=== PATIENT | male | born 1950 | race Caucasian/White ===

== ENCOUNTER 2023-12-24 17:13 | Emergency (ER) | payer OTHER ==
[~2023-12-24] VITALS: Ht 165.1 cm; Wt 44.9 kg
[~2023-12-24 17:13] MED LIST: ALDACTONE25 MG PO; AMIODARONE HYD200 MG PO; CARVEDILOL25 MG PO; CARVEDILOL6.25 MG PO; ELIQUIS2.5 M1 PO; ELIQUIS5 M1 PO; FUROSEMIDE40 MG PO; GLIPIZIDE2.5 MG PO; GLUCOTROL10 MG PO; KLOR-CON M2020 ME1 PO; LASIX40 MG PO; LEXAPRO5 M1 PO; LISINOPRIL5 MG PO; LOVASTATIN40 MG PO; PHARMASSURE V500 MCG PO; PRINIVIL20 M1 PO; VIBRAMYCIN HYC100 MG PO; VITAMIN D350 MCG PO
[2023-12-24 20:36] LABS: BASO % 0.1 % (0.0-1.0); LYMPH # 0.4 10*3/uL (1.3-4.4); LYMPH % 3.6 % (27.0-41.0); MEAN CELL VOLUME 84.5 fl (80.0-94.0); MEAN CORPUSCULAR HGB 26.9 pg (27.0-31.0); MEAN CORPUSCULAR HGB CONC 31.9 g/dl (33.0-37.0); MEAN PLATELET VOLUME 11.4 fl (9.6-12.3); MONO # 0.8 10*3/uL (0.1-1.0); MONO % 7.7 % (3.0-9.0); NEUT # 8.6 10*3/uL (2.3-7.9); NEUT % 88.3 % (47.0-73.0); PLATELET COUNT AUTOMATED 196 10*3/uL (130-400); RED BLOOD COUNT 4.38 10*6/uL (4.50-5.90); RED CELL DISTRI WIDTH 15.1 % (0-14.5); WHITE BLOOD COUNT 9.7 10*3/uL (4.8-10.8)
[2023-12-24 21:01] LABS: ACT PARTIAL THROMBO TIME 29.9 SECONDS (20.0-32.1); ALKALINE PHOSPHATASE 98 U/L (46-116); BUN 21 mg/dl (9-23); CHLORIDE 103 mmol/L (98-107); LIPASE 36 U/L (12-53); POTASSIUM 3.7 mmol/L (3.4-5.1); SGPT/ALT 140 U/L (5-49); TOTAL PROTEIN 6.9 gm/dL (6.0-8.0)
== END 2023-12-25 00:40 | disposition short-term general hospital (02) ==
LOC: ED 17:13
PROVIDERS: Internal Medicine
DX: B02.30 Zoster ocular disease, unspecified (principal); I11.0 Hypertensive heart disease with heart failure; I50.9 Heart failure, unspecified; E78.00 Pure hypercholesterolemia, unspecified; I48.91 Unspecified atrial fibrillation; Z98.890 Other specified postprocedural states

== ENCOUNTER 2025-08-01 19:33 | Inpatient (IN) | payer OTHER ==
[~2025-08-01] VITALS: Ht 172.7 cm; Wt 60.3 kg
[2025-08-01 19:40] VITALS: BP 121/84
[2025-08-01] MEDS ORDERED: SODIUM CHLORIDE 0.9% 1,000 ML IV ONE ×2 (19:50→22:55)
[2025-08-01 20:13] VITALS: BP 120/91
[2025-08-01 20:18] LABS: BASO # 0.0 10*3/uL (0.0-0.1); BASO % 0.4 % (0.0-1.0); EOS # 0.1 10*3/uL (0.0-0.4); EOS % 1.6 % (1.0-4.0); MEAN CELL VOLUME 86.5 fl (80.0-94.0); MEAN CORPUSCULAR HGB 27.9 pg (27.0-31.0); MEAN PLATELET VOLUME 12.8 fl (9.6-12.3); MONO # 0.9 10*3/uL (0.1-1.0); MONO % 9.8 % (3.0-9.0); NEUT # 7.1 10*3/uL (2.3-7.9); NEUT % 78.2 % (47.0-73.0); NUCLEATED RED BLOOD CELL 0.0 10*3/uL (0.0-0.0); NUCLEATED RED BLOOD CELL 0.2 % (0.0-0.0); PLATELET COUNT AUTOMATED 187 10*3/uL (130-400); RED CELL DISTRI WIDTH 15.9 % (0-14.5)
[2025-08-01 20:40] VITALS: BP 112/90
[2025-08-01 20:45] LABS: BUN 31.0 mg/dl (9-23); SGPT/ALT 10.0 U/L (5-49)
[2025-08-01 21:21] VITALS: BP 117/88
[2025-08-01 22:30] VITALS: BP 111/79
[2025-08-01] MEDS ORDERED: AZITHROMYCIN 250 ML IV ONE (22:55)
[2025-08-01 23:16] VITALS: BP 116/86
[2025-08-02] VITALS (41 sets, daily range): BP systolic 95–150; BP diastolic 53–96
[2025-08-02] MEDS ORDERED: SODIUM CHLORIDE 0.9% 1,000 ML IV ONE ×2 (00:30→03:00)
[2025-08-02] MEDS ORDERED: NOREPINEPHRINE BITARTRATE/D5W 250 ML IV ONE ×2 (01:00→03:13)
[2025-08-02 01:41] LABS: BILIRUBIN Negative (Negative); BLOOD Negative (Negative); CLARITY Clear (Clear); COLOR Yellow (Yellow); KETONE Trace (Negative); LEUKO ESTERASE Negative (Negative); NITRITE Negative (Negative); PH 5.5 (4.5-8.0); SPECIFIC GRAVITY 1.020 (1.001-1.030); UROBILINOGEN 1.0 E.U./dl (0.0-1.0)
[2025-08-02 01:59] LABS: RBC 0-2 rbc/hpf (0-2); WBC 0-2 wbc/hpf (0-5)
[2025-08-02] MEDS ORDERED: RAMIPRIL1.25 MG PO (03:01)
[2025-08-02] MEDS ORDERED: ATORVASTATIN CA40 M1 PO (03:02)
[2025-08-02] MEDS ORDERED: NOREPINEPHRINE BITARTRATE/D5W 250 ML IV SCH ×2 (03:05→05:50)
[2025-08-02] MEDS ORDERED: ACETAMINOPHEN 325 MG TAB PO PRN (05:45)
[2025-08-02] MEDS ORDERED: ACETAMINOPHEN 650 MG SUPP R PRN (05:45)
[2025-08-02] MEDS ORDERED: Vancomycin Hydrochloride 1,250 MG in SODIUM CHLORIDE 0.9% 250 ML IV ONE (06:10)
[2025-08-02 06:31] LABS: BASO # 0.0 10*3/uL (0.0-0.1); BASO % 0.2 % (0.0-1.0); EOS # 0.0 10*3/uL (0.0-0.4); EOS % 0.1 % (1.0-4.0); MEAN CELL VOLUME 88.2 fl (80.0-94.0); MEAN CORPUSCULAR HGB 28.0 pg (27.0-31.0); MEAN PLATELET VOLUME 11.9 fl (9.6-12.3); MONO # 1.5 10*3/uL (0.1-1.0); MONO % 8.4 % (3.0-9.0); NEUT # 15.4 10*3/uL (2.3-7.9); NEUT % 86.4 % (47.0-73.0); NUCLEATED RED BLOOD CELL 0.0 10*3/uL (0.0-0.0); NUCLEATED RED BLOOD CELL 0.2 % (0.0-0.0); PLATELET COUNT AUTOMATED 177 10*3/uL (130-400); RED CELL DISTRI WIDTH 15.9 % (0-14.5)
[2025-08-02] MEDS ORDERED: FUROSEMIDE 40 MG/4 ML VIAL IV ONE (07:10)
[2025-08-02 07:17] LABS: BUN 31.0 mg/dl (9-23); LDL CHOLESTEROL 123.0 mg/dL (9-159); SGPT/ALT 313.0 U/L (5-49)
[2025-08-02 08:01] LABS: ARTERIAL BLOOD GAS PH 7.351 (7.350-7.450); ARTERIAL BLOOD GAS PO2 227.2 mmHg (83.0-108.0)
[2025-08-02 08:02] LABS: ABG BASE EXCESS -8.5 mmol/L (-2.0-3.0); ABG O2 SATURATION 99.1 % (94.0-98.0)
[2025-08-02] MEDS ORDERED: FUROSEMIDE 40 MG/4 ML VIAL IV SCH (08:35)
[2025-08-02] MEDS ORDERED: Dexamethasone Sodium Phospha 4 MG/ML VIAL IV SCH (10:00)
[2025-08-02] MEDS ORDERED: APIXABAN 5 MG TAB PO SCH (10:00)
[2025-08-02] MEDS ORDERED: SODIUM CHLORIDE 0.9% 100 ML BAG IV ONE (10:40)
[2025-08-02] MEDS ORDERED: IOHEXOL 350 MG/ML 100 ML VIAL IV ONE (10:40)
[2025-08-02] MEDS ORDERED: Amiodarone Hydrochloride 200 MG TAB PO SCH (18:00)
[2025-08-02] MEDS ORDERED: HEEL PROTECTOR DEVICE ONE (18:00)
[2025-08-02] MEDS ORDERED: ETOMIDATE 20 MG/10 ML VIAL IV ONE (20:32)
[2025-08-02] MEDS ORDERED: ATORVASTATIN CALCIUM 40 MG TABLET PO SCH (22:00)
[2025-08-03] VITALS (8 sets, daily range): BP systolic 83–109; BP diastolic 59–77
[2025-08-03 05:30] LABS: BUN 34.0 mg/dl (9-23); FREE T4 1.38 ng/dl (0.89-1.76); SGPT/ALT 263.0 U/L (5-49)
[2025-08-03 06:16] LABS: MEAN CELL VOLUME 87.0 fl (80.0-94.0); MEAN CORPUSCULAR HGB 27.7 pg (27.0-31.0); MEAN PLATELET VOLUME 13.6 fl (9.6-12.3); NUCLEATED RED BLOOD CELL 0.0 % (0.0-0.0); NUCLEATED RED BLOOD CELL 0.0 10*3/uL (0.0-0.0); PLATELET COUNT AUTOMATED 154 10*3/uL (130-400); RED CELL DISTRI WIDTH 16.2 % (0-14.5)
[2025-08-03 06:34] LABS: ACT PARTIAL THROMBO TIME 27.5 SECONDS (20.0-32.1)
[2025-08-03 06:58] LABS: MANUAL DIFF REFLEX YES
[2025-08-03 07:02] LABS: PLATELET SUFFICIENCY NORMAL (NORMAL)
[2025-08-03 07:37] LABS: ABG O2 SATURATION 99.6 % (94.0-98.0); ARTERIAL BLOOD GAS PH 7.401 (7.350-7.450); ARTERIAL BLOOD GAS PO2 176.8 mmHg (83.0-108.0)
[2025-08-03 07:38] LABS: ABG BASE EXCESS -5.6 mmol/L (-2.0-3.0)
[2025-08-03] MEDS ORDERED: SODIUM BICARBONATE 4.2% 5 ML VIAL ONE (08:57)
[2025-08-03] MEDS ORDERED: Lidocaine Hydrochloride 2% 5 ML SDV ONE (08:57)
[2025-08-03] MEDS ORDERED: IOHEXOL 240 MG/ML 20 ML SOL ONE ×2 (08:58→10:32)
[2025-08-03] MEDS ORDERED: IOHEXOL 240 MG/ML 10 ML SOL ONE (09:56)
[2025-08-03] MEDS ORDERED: Cholecalciferol 2,000 UNIT TABLET (50 MCG) PO SCH (10:00)
[2025-08-03] MEDS ORDERED: CYANOCOBALAMIN 500 MCG TAB PO SCH (10:00)
[2025-08-03] MEDS ORDERED: ESCITALOPRAM OXALATE 10 MG TAB PO SCH (10:00)
[2025-08-03] MEDS ORDERED: REMDESIVIR 200 MG in SODIUM CHLORIDE 0.9% 210 ML IV ONE (11:00)
[2025-08-04] VITALS: BP 90/64
[2025-08-04 04:00] VITALS: BP 105/77
[2025-08-04 05:37] LABS: SGPT/ALT 174.0 U/L (5-49)
[2025-08-04 05:44] LABS: BUN 44.0 mg/dl (9-23)
[2025-08-04 05:59] LABS: MEAN CELL VOLUME 85.6 fl (80.0-94.0); MEAN CORPUSCULAR HGB 27.7 pg (27.0-31.0); MEAN PLATELET VOLUME 13.8 fl (9.6-12.3); NUCLEATED RED BLOOD CELL 0.0 % (0.0-0.0); NUCLEATED RED BLOOD CELL 0.0 10*3/uL (0.0-0.0); PLATELET COUNT AUTOMATED 156 10*3/uL (130-400); RED CELL DISTRI WIDTH 16.3 % (0-14.5)
[2025-08-04 06:30] LABS: MANUAL DIFF REFLEX YES
[2025-08-04 06:35] LABS: PLATELET SUFFICIENCY NORMAL (NORMAL)
[2025-08-04] MEDS ORDERED: POTASSIUM CHLORIDE 20 MEQ TAB PO ONE (07:20)
[2025-08-04 08:00] VITALS: BP 109/85
[2025-08-04] MEDS ORDERED: REMDESIVIR 100 MG in SODIUM CHLORIDE 0.9% 230 ML IV SCH (11:00)
[2025-08-04 12:00] VITALS: BP 110/74
[2025-08-04 16:00] VITALS: BP 109/80
[2025-08-04 20:00] VITALS: BP 116/82
[2025-08-05] VITALS: BP 124/82
[2025-08-05 04:00] VITALS: BP 123/93
[2025-08-05 05:27] LABS: BUN 37.0 mg/dl (9-23); SGPT/ALT 127.0 U/L (5-49)
[2025-08-05 06:04] LABS: MEAN CELL VOLUME 86.1 fl (80.0-94.0); MEAN CORPUSCULAR HGB 27.5 pg (27.0-31.0); MEAN PLATELET VOLUME 13.2 fl (9.6-12.3); NUCLEATED RED BLOOD CELL 0.0 % (0.0-0.0); NUCLEATED RED BLOOD CELL 0.0 10*3/uL (0.0-0.0); PLATELET COUNT AUTOMATED 164 10*3/uL (130-400); RED CELL DISTRI WIDTH 16.5 % (0-14.5)
[2025-08-05 07:18] LABS: MANUAL DIFF REFLEX YES
[2025-08-05 07:21] LABS: PLATELET SUFFICIENCY NORMAL (NORMAL)
[2025-08-05 08:00] VITALS: BP 121/90
[2025-08-05] MEDS ORDERED: MAGNESIUM SULFATE 50 ML IV ONE (09:20)
[2025-08-05] MEDS ORDERED: POTASSIUM CHLORIDE 20 MEQ TAB PO SCH (10:00)
[2025-08-05] MEDS ORDERED: METOPROLOL SUCCINATE XR 25 MG TAB PO SCH (10:00)
[2025-08-05 12:01] VITALS: BP 107/79
[2025-08-05 16:02] VITALS: BP 102/81
[2025-08-05] MEDS ORDERED: FUROSEMIDE 40 MG/4 ML VIAL IV SCH (18:00)
[2025-08-05] MEDS ORDERED: acetaZOLAMIDE 250 MG TAB PO SCH (18:00)
[2025-08-05 20:00] VITALS: BP 107/77
[2025-08-05] MEDS ORDERED: TEMAZEPAM 15 MG CAP PO PRN (22:00)
[2025-08-06] VITALS: BP 101/72
[2025-08-06 04:00] VITALS: BP 107/63
[2025-08-06 05:30] LABS: BUN 31.0 mg/dl (9-23)
[2025-08-06 06:04] LABS: MEAN CELL VOLUME 87.0 fl (80.0-94.0); MEAN CORPUSCULAR HGB 26.9 pg (27.0-31.0); MEAN PLATELET VOLUME 13.2 fl (9.6-12.3); NUCLEATED RED BLOOD CELL 0.0 10*3/uL (0.0-0.0); NUCLEATED RED BLOOD CELL 0.1 % (0.0-0.0); PLATELET COUNT AUTOMATED 182 10*3/uL (130-400); RED CELL DISTRI WIDTH 16.7 % (0-14.5)
[2025-08-06 06:54] LABS: MANUAL DIFF REFLEX YES
[2025-08-06 06:58] LABS: PLATELET SUFFICIENCY NORMAL (NORMAL)
[2025-08-06 08:00] VITALS: BP 105/76
[2025-08-06 14:49] VITALS: BP 105/74
[2025-08-06] MEDS ORDERED: FUROSEMIDE 40 MG/4 ML VIAL IV SCH (18:00)
[2025-08-06 20:00] VITALS: BP 110/90
[2025-08-07] VITALS (7 sets, daily range): BP systolic 90–120; BP diastolic 54–82
[2025-08-07 06:36] LABS: MEAN CELL VOLUME 87.2 fl (80.0-94.0); MEAN CORPUSCULAR HGB 27.3 pg (27.0-31.0); MEAN PLATELET VOLUME 13.2 fl (9.6-12.3); NUCLEATED RED BLOOD CELL 0.0 10*3/uL (0.0-0.0); NUCLEATED RED BLOOD CELL 0.3 % (0.0-0.0); PLATELET COUNT AUTOMATED 177 10*3/uL (130-400); RED CELL DISTRI WIDTH 16.7 % (0-14.5)
[2025-08-07 07:21] LABS: BUN 39.0 mg/dl (9-23); SGPT/ALT 74.0 U/L (5-49)
[2025-08-07 07:34] LABS: MANUAL DIFF REFLEX YES
[2025-08-07 07:36] LABS: PLATELET SUFFICIENCY NORMAL (NORMAL)
[2025-08-07] MEDS ORDERED: FUROSEMIDE 40 MG/4 ML VIAL IV SCH (10:00)
[2025-08-07] MEDS ORDERED: DIGOXIN 500 MCG/2 ML AMP IV ONE (23:55)
[2025-08-08] VITALS (9 sets, daily range): BP systolic 96–140; BP diastolic 44–96
[2025-08-08 00:15] LABS: BUN 49.0 mg/dl (9-23)
[2025-08-08 06:41] LABS: MEAN CELL VOLUME 85.7 fl (80.0-94.0); MEAN CORPUSCULAR HGB 27.2 pg (27.0-31.0); MEAN PLATELET VOLUME 13.6 fl (9.6-12.3); NUCLEATED RED BLOOD CELL 0.0 10*3/uL (0.0-0.0); NUCLEATED RED BLOOD CELL 0.2 % (0.0-0.0); PLATELET COUNT AUTOMATED 174 10*3/uL (130-400); RED CELL DISTRI WIDTH 16.7 % (0-14.5)
[2025-08-08 06:44] LABS: MANUAL DIFF REFLEX YES
[2025-08-08 06:53] LABS: BUN 51.0 mg/dl (9-23)
[2025-08-08 07:12] LABS: PLATELET SUFFICIENCY NORMAL (NORMAL)
[2025-08-08] MEDS ORDERED: CALCIUM ACETATE 667 MG CAP PO SCH (08:00)
[2025-08-09] VITALS: BP 130/60
[2025-08-09 06:33] LABS: MEAN CELL VOLUME 88.3 fl (80.0-94.0); MEAN CORPUSCULAR HGB 27.9 pg (27.0-31.0); MEAN PLATELET VOLUME 13.7 fl (9.6-12.3); NUCLEATED RED BLOOD CELL 0.0 10*3/uL (0.0-0.0); NUCLEATED RED BLOOD CELL 0.1 % (0.0-0.0); PLATELET COUNT AUTOMATED 169 10*3/uL (130-400); RED CELL DISTRI WIDTH 16.5 % (0-14.5)
[2025-08-09 06:40] LABS: MANUAL DIFF REFLEX YES
[2025-08-09 07:04] LABS: PLATELET SUFFICIENCY NORMAL (NORMAL); VACUOLATION OF NEUTROPHILS SLIGHT
[2025-08-09 08:00] VITALS: BP 138/79
[2025-08-09 08:12] LABS: BUN 49.0 mg/dl (9-23); SGPT/ALT 48.0 U/L (5-49)
[2025-08-09] MEDS ORDERED: acetaZOLAMIDE 250 MG TAB PO SCH ×2 (10:00→18:00)
[2025-08-09] MEDS ORDERED: METOPROLOL SUCCINATE XR 50 MG TAB PO SCH (10:00)
[2025-08-09 11:58] VITALS: BP 124/74
[2025-08-09 16:00] VITALS: BP 115/86
[2025-08-09] MEDS ORDERED: FUROSEMIDE 40 MG/4 ML VIAL IV SCH (18:00)
[2025-08-09 20:00] VITALS: BP 136/80
[2025-08-10] VITALS: BP 130/60
[2025-08-10 06:34] LABS: MEAN CELL VOLUME 85.9 fl (80.0-94.0); MEAN CORPUSCULAR HGB 27.0 pg (27.0-31.0); MEAN PLATELET VOLUME 13.7 fl (9.6-12.3); NUCLEATED RED BLOOD CELL 0.0 10*3/uL (0.0-0.0); NUCLEATED RED BLOOD CELL 0.1 % (0.0-0.0); PLATELET COUNT AUTOMATED 175 10*3/uL (130-400); RED CELL DISTRI WIDTH 16.4 % (0-14.5)
[2025-08-10 07:02] LABS: BUN 43.0 mg/dl (9-23); SGPT/ALT 42.0 U/L (5-49)
[2025-08-10 08:00] VITALS: BP 133/85
[2025-08-10 09:18] LABS: MANUAL DIFF REFLEX YES
[2025-08-10 09:20] LABS: PLATELET SUFFICIENCY NORMAL (NORMAL)
[2025-08-10] MEDS ORDERED: METOPROLOL SUCCINATE XR 25 MG TAB PO SCH (10:00)
[2025-08-10 12:00] VITALS: BP 121/61
[2025-08-10] MEDS ORDERED: Menthol/Zinc Oxide 4 GM THIN T PRN (14:10)
[2025-08-10 16:00] VITALS: BP 140/84
[2025-08-10 22:00] VITALS: BP 129/73
[2025-08-10] MEDS ORDERED: Menthol/Zinc Oxide 4 GM THIN T SCH (22:00)
[2025-08-11] VITALS: BP 140/60
[2025-08-11 08:00] VITALS: BP 123/85
[2025-08-11 12:00] VITALS: BP 122/75
[2025-08-11 15:45] VITALS: BP 106/66
[2025-08-11 20:00] VITALS: BP 139/86
[2025-08-12] VITALS: BP 130/88
[2025-08-12 08:00] VITALS: BP 135/80
[2025-08-12] MEDS ORDERED: APIXABAN 2.5 MG TABLET PO SCH (10:00)
[2025-08-12 12:00] VITALS: BP 114/71
[2025-08-12 16:00] VITALS: BP 117/80
[2025-08-12 20:00] VITALS: BP 127/75
[2025-08-12] MEDS ORDERED: Menthol/Zinc Oxide 113 GM THIN T SCH (22:00)
[2025-08-13] VITALS: BP 130/75
[2025-08-13 07:40] LABS: BUN 35.0 mg/dl (9-23)
[2025-08-13 08:00] VITALS: BP 138/74
[2025-08-13 12:00] VITALS: BP 123/91
[2025-08-13 15:57] VITALS: BP 116/71
[2025-08-13 20:00] VITALS: BP 125/82
[2025-08-14] VITALS: BP 107/83
[2025-08-14 06:17] LABS: MEAN CELL VOLUME 86.3 fl (80.0-94.0); MEAN CORPUSCULAR HGB 27.0 pg (27.0-31.0); MEAN PLATELET VOLUME 13.1 fl (9.6-12.3); NUCLEATED RED BLOOD CELL 0.0 % (0.0-0.0); NUCLEATED RED BLOOD CELL 0.0 10*3/uL (0.0-0.0); PLATELET COUNT AUTOMATED 176 10*3/uL (130-400); RED CELL DISTRI WIDTH 16.1 % (0-14.5)
[2025-08-14 06:52] LABS: BUN 32.0 mg/dl (9-23)
[2025-08-14 07:14] LABS: MANUAL DIFF REFLEX YES
[2025-08-14 07:16] LABS: PLATELET SUFFICIENCY NORMAL (NORMAL)
[2025-08-14 08:00] VITALS: BP 133/73
[2025-08-14] MEDS ORDERED: POTASSIUM CHLORIDE 20 MEQ TAB PO ONE (11:30)
[2025-08-14 12:00] VITALS: BP 132/78
[2025-08-14 16:00] VITALS: BP 99/61
[2025-08-14 20:00] VITALS: BP 117/68
[2025-08-15] VITALS: BP 116/83
[2025-08-15 07:23] LABS: MEAN CELL VOLUME 85.8 fl (80.0-94.0); MEAN CORPUSCULAR HGB 27.3 pg (27.0-31.0); MEAN PLATELET VOLUME 13.8 fl (9.6-12.3); NUCLEATED RED BLOOD CELL 0.0 % (0.0-0.0); NUCLEATED RED BLOOD CELL 0.0 10*3/uL (0.0-0.0); PLATELET COUNT AUTOMATED 175 10*3/uL (130-400); RED CELL DISTRI WIDTH 16.6 % (0-14.5)
[2025-08-15 07:27] LABS: MANUAL DIFF REFLEX YES
[2025-08-15 07:47] LABS: BASOPHILS 1 % (0-1); PLATELET SUFFICIENCY NORMAL (NORMAL)
[2025-08-15 08:00] VITALS: BP 100/49
[2025-08-15 08:10] LABS: BUN 40.0 mg/dl (9-23)
[2025-08-15] MEDS ORDERED: FUROSEMIDE 40 MG TAB PO SCH (10:00)
[2025-08-15] MEDS ORDERED: Vitamin D 1,000 IU TAB (25 MCG) PO SCH (10:00)
[2025-08-15] MEDS ORDERED: TOPROL XL25 MG PO (11:53)
[2025-08-15] MEDS ORDERED: FUROSEMIDE40 MG PO (11:53)
[2025-08-15 12:00] VITALS: BP 99/63
== END 2025-08-15 22:42 | DRG 871 ==
LOC: ED 19:33 → EDHOLD 08-02 05:32 → 5E 08-02 05:32 → ICCU 08-02 05:32 → EDHOLD 08-02 06:00 → ICCU 08-02 09:22 → 5E 08-06 05:53
PROVIDERS: Family Medicine; Internal Medicine; Registered Nurse; Student in an Organized Health Care Education/Training Program; ADMIT Internal Medicine; ATTEND Internal Medicine
PROC: 5A1945Z Respiratory Ventilation, 24-96 Consecutive Hours (ICD-10-PCS; principal; 2025-08-02)
PROC: 02HV33Z Insertion of Infusion Device into Superior Vena Cava, Percutaneous Approach (ICD-10-PCS; 2025-08-02)
PROC: B548ZZA Ultrasonography of Superior Vena Cava, Guidance (ICD-10-PCS; 2025-08-02)
DX: A41.9 Sepsis, unspecified organism (principal); E43 Unspecified severe protein-calorie malnutrition; I50.23 Acute on chronic systolic (congestive) heart failure; R65.21 Severe sepsis with septic shock; N17.0 Acute kidney failure with tubular necrosis; U07.1 COVID-19; J96.01 Acute respiratory failure with hypoxia; E87.20 Acidosis, unspecified; K81.0 Acute cholecystitis; T46.2X1A Poisoning by other antidysrhythmic drugs, accidental (unintentional), initial encounter; I48.0 Paroxysmal atrial fibrillation; E11.65 Type 2 diabetes mellitus with hyperglycemia; I11.0 Hypertensive heart disease with heart failure; E83.51 Hypocalcemia; E87.6 Hypokalemia; E78.00 Pure hypercholesterolemia, unspecified; D64.9 Anemia, unspecified; K76.0 Fatty (change of) liver, not elsewhere classified; Z95.0 Presence of cardiac pacemaker; Z82.49 Family history of ischemic heart disease and other diseases of the circulatory system; Z82.3 Family history of stroke; Z83.6 Family history of other diseases of the respiratory system; Z79.899 Other long term (current) drug therapy; Z68.20 Body mass index [BMI] 20.0-20.9, adult

== ENCOUNTER 2025-08-22 09:57 | Observation (INO) | payer OTHER ==
[~2025-08-22] VITALS: Wt 49.0 kg
[2025-08-22] VITALS (12 sets, daily range): BP systolic 74–128; BP diastolic 40–71
[~2025-08-22 09:57] MED LIST changes: +ATORVASTATIN CA40 M1 PO; +RAMIPRIL1.25 MG PO; +TOPROL XL25 MG PO
[2025-08-22] MEDS ORDERED: REMERON15 M2 PO (10:12)
[2025-08-22] MEDS ORDERED: DILTIAZEM HCL IN NACL,ISO-OSM 100 ML IV SCH (10:15)
[2025-08-22 10:57] LABS: VENOUS BLOOD GAS O2 SAT 78.8 % (60.0-85.0)
[2025-08-22 10:58] LABS: BASO # 0.1 10*3/uL (0.0-0.1); BASO % 0.5 % (0.0-1.0); EOS # 0.1 10*3/uL (0.0-0.4); EOS % 1.1 % (1.0-4.0); MEAN CELL VOLUME 92.4 fl (80.0-94.0); MEAN CORPUSCULAR HGB 27.3 pg (27.0-31.0); MEAN PLATELET VOLUME 12.5 fl (9.6-12.3); MONO # 0.4 10*3/uL (0.1-1.0); MONO % 3.6 % (3.0-9.0); NEUT # 9.9 10*3/uL (2.3-7.9); NEUT % 86.6 % (47.0-73.0); NUCLEATED RED BLOOD CELL 0.0 % (0.0-0.0); NUCLEATED RED BLOOD CELL 0.0 10*3/uL (0.0-0.0); PLATELET COUNT AUTOMATED 135 10*3/uL (130-400); RED CELL DISTRI WIDTH 16.4 % (0-14.5)
[2025-08-22 11:21] LABS: BUN 40.0 mg/dl (9-23); CPK 33.0 U/L (34-171)
[2025-08-22] MEDS ORDERED: Ondansetron Hydrochloride 4 MG/2 ML VIAL IV ONE (14:15)
[2025-08-22] MEDS ORDERED: SODIUM CHLORIDE 0.9% 500 ML IV ONE (14:15)
[2025-08-23] MEDS ORDERED: TEMAZEPAM 15 MG CAP PO PRN (00:15)
[2025-08-23] MEDS ORDERED: Ondansetron Hydrochloride 4 MG/2 ML VIAL IV PRN (00:15)
[2025-08-23] MEDS ORDERED: BISACODYL 10 MG SUPP R PRN (00:15)
[2025-08-23] MEDS ORDERED: ACETAMINOPHEN 650 MG SUPP R PRN (00:15)
[2025-08-23] MEDS ORDERED: ACETAMINOPHEN 325 MG TAB PO PRN (00:15)
[2025-08-23] MEDS ORDERED: BISACODYL 5 MG TAB PO PRN (00:15)
[2025-08-23] MEDS ORDERED: Acetaminophen/Hydrocodone 5 MG/325 MG TABLET PO PRN (00:15)
== END 2025-08-23 05:20 | disposition short-term general hospital (02) ==
LOC: ED 09:57 → EDHOLD 23:23
PROVIDERS: Emergency Medicine; ADMIT Internal Medicine; ATTEND Internal Medicine
DX: A41.9 Sepsis, unspecified organism (principal); K81.0 Acute cholecystitis; T85.518A Breakdown (mechanical) of other gastrointestinal prosthetic devices, implants and grafts, initial encounter; I11.0 Hypertensive heart disease with heart failure; I50.21 Acute systolic (congestive) heart failure; E87.20 Acidosis, unspecified; N17.0 Acute kidney failure with tubular necrosis; D72.829 Elevated white blood cell count, unspecified; E03.9 Hypothyroidism, unspecified; I95.2 Hypotension due to drugs; E55.9 Vitamin D deficiency, unspecified; E53.8 Deficiency of other specified B group vitamins; Z79.899 Other long term (current) drug therapy